=== PATIENT | female | born 1935 | race Caucasian/White ===

== ENCOUNTER 2019-06-07 15:24 | Observation (INO) | payer MEDICARE ==
[2019-06-07] MEDS ORDERED: NALOXONE 0.4 MG/ML 1 ML VIAL IV PRN (20:42)
[2019-06-07] MEDS ORDERED: NITROGLYCERIN SL TABS 0.4 MG TAB SUBLINGUAL PRN (20:44)
[2019-06-07] MEDS ORDERED: hydrALAZINE HCL 20 MG/ML 1 ML VIAL IVP PRN (21:00)
[2019-06-07] MEDS ORDERED: ALPRAZolam 0.25 MG TAB PO PRN (21:00)
[2019-06-07] MEDS ORDERED: cloNIDine HCL 0.1 MG TAB PO PRN (21:00)
[2019-06-07] MEDS: MAGNESIUM OXIDE 400 MG TAB PO SCH (21:12)
[2019-06-07] MEDS: amLODIPine 5 MG TAB PO SCH (21:12)
[2019-06-07] MEDS: MIRTAZAPINE 15 MG TAB PO SCH (21:12)
[2019-06-07] MEDS: DULoxetine HCL 60 MG CAPSULE.DR PO SCH (21:12)
[2019-06-07] MEDS: SODIUM CHLORIDE 0.9% 1,000 ML IV SCH (21:13)
[2019-06-07] MEDS: PANTOPRAZOLE 40 MG/10 ML VIAL IVP SCH (21:16)
[2019-06-07 21:32] LABS: Albumin 3.9 g/dL (3.5-5.0); Calcium 9.4 mg/dL (8.4-10.2); Potassium 4.2 mmol/L (3.5-5.1); Total Bilirubin 0.3 mg/dL (0.2-1.3); Total Protein 6.6 g/dL (6.3-8.2)
--- NOTE | 2019-06-07 21:38 | XR ---
EXAMINATION TYPE: XR chest 1V portable DATE OF EXAM: 06/07/2019 COMPARISON: NONE HISTORY: Short of breath TECHNIQUE: Single frontal view of the chest is obtained. FINDINGS: There is coarsening of the lung markings. There are sternal wires. Costophrenic angles are clear. There is mild linear density left lung base. Thoracic aorta is atheromatous. IMPRESSION: Subsegmental atelectasis. Mild pulmonary interstitial edema. This is consistent with min imal heart failure.
[2019-06-07 21:50] LABS: Basophils # (A) 0.1 k/uL (0-0.2); Basophils % (A) 1 %; Eosinophils # (A) 0.4 k/uL (0-0.7); Eosinophils % (A) 8 %; HGB 12.7 gm/dL (11.4-16.0); Lymphocytes # (A) 1.6 k/uL (1.0-4.8); Lymphocytes % (A) 35 %; MCH 30.4 pg (25.0-35.0); MCHC 31.7 g/dL (31.0-37.0); Mean Platelet Volume 8.5; Monocytes # (A) 0.3 k/uL (0-1.0); Monocytes % (A) 6 %; Neutrophils # (A) 2.1 k/uL (1.3-7.7); Neutrophils % (A) 46 %; Platelet Count 177 k/uL (150-450); RBC 4.17 m/uL (3.80-5.40); RDW 14.7 % (11.5-15.5); WBC 4.5 k/uL (3.8-10.6)
[2019-06-07 21:51] LABS: Appearance,Urine Clear (Clear); Bilirubin,Urine Negative (Negative); Blood,Urine Negative (Negative); Color,Urine Light Yellow; Glucose,Urine (UA) Negative (Negative); Ketones,Urine Negative (Negative); Leukocyte Esterase,Urine Negative (Negative); Nitrite,Urine Negative (Negative); Protein,Urine Negative (Negative); Specific Gravity,Urine 1.011 (1.001-1.035); Urobilinogen,Urine <2.0 mg/dL (<2.0)
[2019-06-07] MEDS: TROSPIUM CHLORIDE 20 MG TABLET PO SCH (21:58)
[2019-06-07] MEDS: TIMOLOL 0.5% OPHTH DROPS 5 ML BTL BOTH EYES SCH (22:01)
--- NOTE | 2019-06-07 23:31 | HP ---
HISTORY AND PHYSICAL DATE OF SERVICE: 06/07/2019 CHIEF COMPLAINT: Diarrhea and as well as melenic stools. HISTORY OF PRESENT ILLNESS: This 83-year-old woman with a past medical history of multiple medical problems including hyperlipidemia, history of restless legs syndrome, history of hypertension, history of GERD, history of kidney disease, tonsillectomy, appendectomy, being followed by Dr[facility] in the [facility] setting, was not feeling well for the last 3 days. The patient had multiple episodes of diarrheal stools which was melenic and also some blood was also noted. The patient went to [facility] and hemoglobin was found to be 13. A CT scan of the abdomen was done in [facility] which showed focal areas of mucosal thickening in the hepatic flexure, could be artifact and a hyperdense renal cyst was also noted and the patient was transferred to [facility] as a direct admission, admitted for further evaluation and treatment. There is no history of fever, rigors or chills. No history of headache, loss of consciousness or seizures at this time. PAST MEDICAL HISTORY: Of hypertension, hyperlipidemia, restless legs syndrome, history of gastroesophageal reflux disease. MEDICATIONS: Home medications are reviewed and include: 1. Norvasc 5 mg p.o. daily. 2. Timolol 1 drop both eyes daily. 3. VESIcare 5 mg q.h.s. 4. Pravachol 40 mg q.h.s. 5. Omeprazole 20 mg. 6. Nitrostat 0.4 sublingual p.r.n. 7. Singulair 10 mg p.o. daily. 8. Remeron 50 mg q.h.s. 9. Magnesium oxide 400 mg p.o. t.i.d. 10.Krill oil 500 mg p.o. daily. 11.Vitamin D2 50,000 p.o. Sunday. 12.Diclofenac 1 tablet p.o. daily. 13.Cymbalta 60 mg p.o. daily. 14.Plavix 75 mg p.o. daily. 15.Biotin 5 mg p.o. daily. ALLERGIES: NORCO, DILTIAZEM,ERYTHROMYCIN TABLETS, PREMARIN, NORCO, PENICILLIN, PREDNISONE, BACTRIM. VERAPAMIL. FAMILY HISTORY: No history of heart disease or strokes in the family. SOCIAL HISTORY: No history of current smoking or alcohol. REVIEW OF SYSTEMS: ENT: Diminished vision. Diminished hearing. CARDIOVASCULAR: No angina or palpitations. RESPIRATION: No cough or hemoptysis. GI mentioned earlier. no dysuria. NERVOUS SYSTEM: No numbness or weakness. ALLERGY/IMMUNOLOGY: No asthma or hayfever. MUSCULOSKELETAL as mentioned earlier. HEMATOLOGY/ONCOLOGY: No history of anemia. ENDOCRINE: No history of diabetes or hypothyroidism. CONSTITUTIONAL: As mentioned earlier. DERMATOLOGY: Negative. RHEUMATOLOGY: Negative. PSYCHIATRIC: As mentioned earlier. PHYSICAL EXAMINATION: Alert and oriented times three. Pulse is 54. Blood pressure 208/66, respiration 12, temperature 98 degrees, pulse ox 98% on room air. HEENT: Conjunctivae normal. Oral mucosa moist. NECK is no jugular venous distention. No carotid bruit. No lymph node enlargement. CARDIOVASCULAR: S1, S2 muffled. Ejection systolic murmur. No S3, no S4. RESPIRATORY: Breath sounds diminished in the bases. No rhonchi. No crackles. ABDOMEN: Soft. Mildly obese. Otherwise nontender. No guarding. No rigidity. No mass palpable. LEGS: No edema. No swelling. NERVOUS SYSTEM: Higher functions as mentioned earlier. Moves all 4 limbs. No focal motor or sensory deficit. LYMPHATICS: No lymph nodes palpable in the neck, axillae or groin. SKIN: No ulcer, rash or bleeding. JOINTS: No active deforming arthropathy. NERVOUS SYSTEM: Moves all 4 limbs. No focal deficits. LABS: At this time, hemoglobin 13, previous labs are noted. ASSESSMENT: 1. Possible upper gastrointestinal bleeding with diarrhea, rule out colitis. 2. Focal area of abnormality in the hepatic flexure area in the CT scan for further evaluation. 3. Hypertension. 4. Hyperlipidemia. 5. Restless legs syndrome. 6. History of coronary artery disease. 7. History of gastroesophageal reflux disease. 8. History of chronic kidney disease. 9. History of cholecystectomy. 10.History of appendectomy. 11.History of degenerative joint disease. RECOMMENDATIONS AND DISCUSSION: This 83-year-old woman who presented with multiple complex medical issues, at this time, I recommend to continue current medications, continue symptomatic treatment. Keep the patient on clear liquids. Gastroenterology evaluation. Otherwise, I would also recommend repeat labs in the morning and hold Plavix. Overall prognosis guarded because of multiple complex medical issues. The patient will require endoscopies. The possibility of upper gastrointestinal bleeding is also to be considered such as peptic ulcer disease. The CT scan abnormality is a concern as well. We will continue to monitor. Further recommendations to follow. Copy of dictation being forwarded to Dr. Angel, who is the primary physician. Discussed with the patient who understands and agrees. Discussed with staff. MMETTAL / IJN: [id number] /
[2019-06-08 07:54] LABS: Basophils # (A) 0.1 k/uL (0-0.2); Basophils % (A) 1 %; Eosinophils # (A) 0.3 k/uL (0-0.7); Eosinophils % (A) 7 %; HCT 38.6 % (34.0-46.0); HGB 12.6 gm/dL (11.4-16.0); Lymphocytes # (A) 1.3 k/uL (1.0-4.8); Lymphocytes % (A) 27 %; MCH 30.7 pg (25.0-35.0); MCHC 32.6 g/dL (31.0-37.0); Mean Platelet Volume 8.3; Monocytes # (A) 0.3 k/uL (0-1.0); Monocytes % (A) 5 %; Neutrophils # (A) 2.6 k/uL (1.3-7.7); Neutrophils % (A) 56 %; Platelet Count 171 k/uL (150-450); RBC 4.11 m/uL (3.80-5.40); RDW 13.7 % (11.5-15.5); WBC 4.7 k/uL (3.8-10.6)
[2019-06-08 08:09] LABS: Calcium 9.6 mg/dL (8.4-10.2); Potassium 5.1 mmol/L (3.5-5.1)
[2019-06-08] MEDS: MONTELUKAST 10 MG TAB PO SCH (09:14)
[2019-06-08] MEDS: amLODIPine 5 MG TAB PO SCH (09:14)
[2019-06-08] MEDS: MAGNESIUM OXIDE 400 MG TAB PO SCH ×3 (09:14→20:25)
[2019-06-08] MEDS: DULoxetine HCL 60 MG CAPSULE.DR PO SCH (09:14)
[2019-06-08] MEDS: TIMOLOL 0.5% OPHTH DROPS 5 ML BTL BOTH EYES SCH (09:14)
[2019-06-08] MEDS: PANTOPRAZOLE 40 MG/10 ML VIAL IVP SCH ×2 (09:15→20:26)
--- NOTE | 2019-06-08 10:54 | P.GSCN ---
History of Present Illness Consult date: 06/08/19 Reason for Consult: GI bleed History of present illness: Patient came to the hospital complaining of black colored stools. Patient takes blood thinners while at home. No history of similar events. Denies abdominal pain. Never has had an upper or lower endoscopy in the past. Plavix was held after admission. Denies constipation. We were consulted for endoscopic evaluation. Review of Systems The patient denies any acute changes in vision or hearing, no dysphagia or odynophagia, no chest pain or shortness of breath, no dysuria or hematuria, no headache, no runny nose, no unexplained weight loss Past Medical History Past Medical History: Hyperlipidemia, Hypertension, Rheumatoid Arthritis (RA) History of Any Multi-Drug Resistant Organisms: None Reported Past Surgical History: Back Surgery, Coronary Bypass/CABG, Hysterectomy, Joint Replacement, Orthopedic Surgery, Tonsillectomy Additional Past Surgical History / Comment(s): CABG x3 Past Anesthesia/Blood Transfusion Reactions: No Reported Reaction Past Psychological History: No Psychological Hx Reported Smoking Status: Never smoker - Past Family History Father Family Medical History: Unable to Obtain Mother Family Medical History: Unable to Obtain Medications and Allergies Home Medications Medication Instructions Recorded Confirmed Type Biotin 5 mg PO DAILY 06/07/19 06/07/19 History Clopidogrel [Plavix] 75 mg PO DAILY 06/07/19 06/07/19 History DULoxetine HCL [Cymbalta] 60 mg PO DAILY 06/07/19 06/07/19 History Diclofenac Sodium/Misoprostol 1 tab PO DAILY 06/07/19 06/07/19 History [Diclofenac-Misoprost 75-200 Tb] Ergocalciferol (Vitamin D2) 50,000 unit PO SA 06/07/19 06/07/19 History [Vitamin D2] Krill Oil 500 mg PO DAILY 06/07/19 06/07/19 History Magnesium Oxide 400 mg PO TID 06/07/19 06/07/19 History Mirtazapine [Remeron] 15 mg PO HS 06/07/19 06/07/19 History Montelukast [Singulair] 10 mg PO DAILY 06/07/19 06/07/19 History Nitroglycerin Sl Tabs [Nitrostat] 0.4 mg SUBLINGUAL Q5M PRN 06/07/19 06/07/19 History Omeprazole 20 mg PO DAILY 06/07/19 06/07/19 History Pravastatin Sodium [Pravachol] 40 mg PO HS 06/07/19 06/07/19 History Solifenacin Succinate [Vesicare] 5 mg PO HS 06/07/19 06/07/19 History Timolol [Betimol 0.5% Ophth Soln] 1 drop BOTH EYES DAILY 06/07/19 06/07/19 History amLODIPine [Norvasc] 5 mg PO DAILY 06/07/19 06/07/19 History Allergies Allergy/AdvReac Type Severity Reaction Status Date / Time acetaminophen [From [place]] Allergy Unknown Verified 06/07/19 19:48 diltiazem Allergy Unknown Verified 06/07/19 19:48 erythromycin base Allergy Unknown Verified 06/07/19 19:48 [From Ethan-Tab] estrogens, conjugated Allergy Unknown Verified 06/07/19 19:48 [From Premarin] hydrocodone [From [place]] Allergy Unknown Verified 06/07/19 19:48 Penicillins Allergy Unknown Verified 06/07/19 19:48 prednisone Allergy Unknown Verified 06/07/19 19:48 sulfamethoxazole Allergy Unknown Verified 06/07/19 19:48 [From Bactrim] trimethoprim [From Bactrim] Allergy Unknown Verified 06/07/19 19:48 verapamil Allergy Unknown Verified 06/07/19 19:48 Surgical - Exam Vital Signs Temp Pulse Resp BP Pulse Ox 98 F 54 L 12 208/66 99 06/07/19 17:35 06/07/19 17:35 06/07/19 17:35 06/07/19 17:35 06/07/19 17:35 Physical exam: General: Well-developed, well-nourished HEENT: Normocephalic, sclerae nonicteric Abdomen: Nontender, nondistended Extremities: No edema Neuro: Alert and oriented Results - Labs 06/08/19 07:02 06/08/19 07:02 Abnormal Lab Results - Last 24 Hours (Table) 06/07/19 06/08/19 Range/Units 20:59 07:02 Chloride 108 H 109 H (98-107) mmol/L Carbon Dioxide 21 L (22-30) mmol/L BUN 40 H 34 H (7-17) mg/dL Creatinine 1.35 H 1.23 H (0.52-1.04) mg/dL Diabetes panel 06/07/19 06/08/19 Range/Units 20:59 07:02 Sodium 140 140 (137-145) mmol/L Potassium 4.2 5.1 (3.5-5.1) mmol/L Chloride 108 H 109 H (98-107) mmol/L Carbon Dioxide 21 L 22 (22-30) mmol/L BUN 40 H 34 H (7-17) mg/dL Creatinine 1.35 H 1.23 H (0.52-1.04) mg/dL Glucose 89 93 (74-99) mg/dL Calcium 9.4 9.6 (8.4-10.2) mg/dL AST 14 (14-36) U/L ALT 15 (9-52) U/L Alkaline Phosphatase 86 (38-126) U/L Total Protein 6.6 (6.3-8.2) g/dL Albumin 3.9 (3.5-5.0) g/dL Calcium panel 06/07/19 06/08/19 Range/Units 20:59 07:02 Calcium 9.4 9.6 (8.4-10.2) mg/dL Albumin 3.9 (3.5-5.0) g/dL Pituitary panel 06/07/19 06/08/19 Range/Units 20:59 07:02 Sodium 140 140 (137-145) mmol/L Potassium 4.2 5.1 (3.5-5.1) mmol/L Chloride 108 H 109 H (98-107) mmol/L Carbon Dioxide 21 L 22 (22-30) mmol/L BUN 40 H 34 H (7-17) mg/dL Creatinine 1.35 H 1.23 H (0.52-1.04) mg/dL Glucose 89 93 (74-99) mg/dL Calcium 9.4 9.6 (8.4-10.2) mg/dL Adrenal panel 06/07/19 06/08/19 Range/Units 20:59 07:02 Sodium 140 140 (137-145) mmol/L Potassium 4.2 5.1 (3.5-5.1) mmol/L Chloride 108 H 109 H (98-107) mmol/L Carbon Dioxide 21 L 22 (22-30) mmol/L BUN 40 H 34 H (7-17) mg/dL Creatinine 1.35 H 1.23 H (0.52-1.04) mg/dL Glucose 89 93 (74-99) mg/dL Calcium 9.4 9.6 (8.4-10.2) mg/dL Total Bilirubin 0.3 (0.2-1.3) mg/dL AST 14 (14-36) U/L ALT 15 (9-52) U/L Alkaline Phosphatase 86 (38-126) U/L Total Protein 6.6 (6.3-8.2) g/dL Albumin 3.9 (3.5-5.0) g/dL Assessment and Plan (1) GI bleed Narrative/Plan: 83-year-old female with new onset melanotic stools. We'll proceed with upper and lower endoscopy tomorrow. Continue to hold Plavix. Current Visit: Yes Status: Acute Code(s): K92.2 - GASTROINTESTINAL HEMORRHAGE, UNSPECIFIED SNOMED Code(s): 25679180
[2019-06-08] MEDS: SODIUM CHLORIDE 0.9% 1,000 ML IV SCH (12:14)
[2019-06-08] MEDS ORDERED: PEG 3350-NA SULF,BICARB,CL/KCL 4,000 ML BOTTLE PO ONE (14:21)
[2019-06-08] MEDS: cloNIDine HCL 0.1 MG TAB PO SCH ×2 (18:08→20:26)
--- NOTE | 2019-06-08 19:21 | PN ---
PROGRESS NOTE DATE OF SERVICE: 06/08/2019 This 83 -year-old woman with a past medical history of multiple medical problems was admitted with GI bleed. The patient still has some minimal amount of gastrointestinal bleed at this time. Dr. Coburn is following the patient closely. Hemoglobin is 12.6 today. Creatinine is elevated at 1.23. PAST MEDICAL HISTORY: Reviewed. REVIEW OF SYSTEMS: CARDIOVASCULAR SYSTEM: No angina or palpitations. RESPIRATION: As mentioned earlier. GI: As mentioned earlier. : No dysuria. CENTRAL NERVOUS SYSTEM: No numbness or weakness. CURRENT MEDICATIONS: Reviewed and include: 1. Xanax 0.5 t.i.d. 2. Norvasc 5 mg daily. 3. Catapres 0.1 q.4 p.r.n. 4. Cymbalta 60 mg daily. 5. Apresoline 10 mg q.4 p.r.n. 6. Magnesium oxide 400 mg t.i.d. 7. Remeron 50 mg q.h.s. 8. Singulair 10 mg p.o. daily. 9. Narcan 0.2 q.2h p.r.n. 10.Nitrostat 0.4 sublingual p.r.n. 11.Protonix 40 mg IV b.i.d. 12.Timoptic 1 drop both eyes. 13.Sanctura 20 mg p.o. q.h.s. PHYSICAL EXAM: Patient is alert, oriented x3. The pulse is 97, blood pressure 215/83, respiration 12, temperature 97.6, pulse ox 98% on room air. HEENT: Conjunctivae normal. Oral mucosa moist. NECK is no jugular venous distention. No carotid bruit. No lymph node enlargement. CARDIOVASCULAR: S1, S2 muffled. No S3, no S4. RESPIRATORY: Breath sounds diminished in the bases. No rhonchi. No crackles. ABDOMEN: Soft, nontender. No mass palpable. No hepatosplenomegaly. No ascites. LEGS: No edema. No swelling. NERVOUS SYSTEM: Higher functions as mentioned earlier. Moves all four limbs. No focal motor or sensory deficits. LYMPHATICS: No lymph nodes palpable in the neck, axillae or groin. SKIN: No ulcers, rashes or bleeding. JOINTS: No active deforming arthropathy. LABS: At this time shows WBC 4.7, hemoglobin ntd, potassium 5.2, creatinine is to 1.23. ASSESSMENT: 1. Acute upper gastrointestinal bleeding, possibly with acute blood loss anemia. Rule out colitis. 2. Focal area of abnormality in hepatic flexure with area in the CT scan done elsewhere for further evaluation. 3. Hypertensive urgency and accelerated hypertension. 4. Hyperlipidemia. 5. Restless legs syndrome history. 6. History of coronary artery disease. 7. History of gastroesophageal reflux disease. 8. History of chronic kidney disease. 9. History of cholecystectomy. 10.Appendectomy. 11.History of degenerative joint disease. RECOMMENDATIONS AND DISCUSSION: Recommend to continue current medications, management and symptomatic treatment. Otherwise, at this time, I recommend evaluation with surgery and Gastroenterology. Otherwise, add clonidine to the current regimen. P.r.n. medications hydralazine also can be used. Further recommendations to follow. Prognosis guarded because of multiple complex medical issues. Repeat labs will be ordered for tomorrow morning. DVT prophylaxis. MMODL / IJN: [id number] / MTDDevin
[2019-06-08] MEDS: TROSPIUM CHLORIDE 20 MG TABLET PO SCH (20:25)
[2019-06-08] MEDS: MIRTAZAPINE 15 MG TAB PO SCH ×2 (20:26→20:34)
[2019-06-09] MEDS: SODIUM CHLORIDE 0.9% 1,000 ML IV SCH ×2 (00:35→13:52)
[2019-06-09] MEDS: MAGNESIUM OXIDE 400 MG TAB PO SCH ×2 (07:13→15:59)
[2019-06-09] MEDS: MONTELUKAST 10 MG TAB PO SCH (07:13)
[2019-06-09] MEDS: PANTOPRAZOLE 40 MG/10 ML VIAL IVP SCH (07:27)
[2019-06-09] MEDS: amLODIPine 5 MG TAB PO SCH (07:27)
[2019-06-09] MEDS: DULoxetine HCL 60 MG CAPSULE.DR PO SCH (07:27)
[2019-06-09] MEDS: cloNIDine HCL 0.1 MG TAB PO SCH ×2 (07:27→15:58)
[2019-06-09] MEDS: TIMOLOL 0.5% OPHTH DROPS 5 ML BTL BOTH EYES SCH (07:28)
[2019-06-09] MEDS ORDERED: LIDOCAINE 1% INJ 10MG/ML (20 ML MDV) ONE (09:50)
[2019-06-09] MEDS ORDERED: ePHEDrine SULFATE/0.9% NACL/PF 50 MG/5 ML SYRINGE IV ONE (09:50)
[2019-06-09] MEDS ORDERED: IV FLUID CONTINUATION 1,000 ML IV ONE (09:50)
[2019-06-09] MEDS ORDERED: PROPOFOL 10 MG/ML 20 ML VIAL IV ONE (09:50)
[2019-06-09] MEDS ORDERED: GLYCOPYRROLATE 0.2 MG/ML 2 ML VIAL ONE (09:50)
[2019-06-09 10:04] LABS: Basophils # (A) 0.1 k/uL (0-0.2); Basophils % (A) 2 %; Eosinophils # (A) 0.4 k/uL (0-0.7); Eosinophils % (A) 9 %; HCT 36.7 % (34.0-46.0); HGB 12.2 gm/dL (11.4-16.0); Lymphocytes # (A) 1.4 k/uL (1.0-4.8); Lymphocytes % (A) 31 %; MCH 30.7 pg (25.0-35.0); MCHC 33.1 g/dL (31.0-37.0); MCV 92.7 fL (80.0-100.0); Mean Platelet Volume 8.6; Monocytes # (A) 0.3 k/uL (0-1.0); Monocytes % (A) 6 %; Neutrophils # (A) 2.2 k/uL (1.3-7.7); Neutrophils % (A) 49 %; Platelet Count 188 k/uL (150-450); RBC 3.96 m/uL (3.80-5.40); RDW 14.2 % (11.5-15.5); WBC 4.5 k/uL (3.8-10.6)
[2019-06-09] MEDS ORDERED: LACTATED RINGERS 1,000 ML IV ONE (10:11)
--- NOTE | 2019-06-09 10:22 | P.PCN ---
Date of Procedure: 06/09/19 Procedure(s) Performed: PREOPERATIVE DIAGNOSIS: GI bleeding POSTOPERATIVE DIAGNOSIS: Normal EGD, normal colonoscopy PROCEDURE: 1. EGD with biopsy 2. Colonoscopy ANESTHESIA: MAC SURGEON: Chas Coburn M.D. SPECIMENS: Antrum ENDOSCOPIC PROCEDURE: The patient was on the endoscopy table in the left decubit us position. The Olympus gastroscope was inserted into the oropharynx and passed under direct visualization to the region of the third portion of the duodenum. From that point the scope was slowly withdrawn inspecting all surfaces carefully. There were no neoplastic inflammatory or polypoid lesions throughout the duodenum. The pylorus was widely patent. The stomach was carefully inspected. There was no abnormalities identified. A biopsy of the antrum took place to rule out H. pylori. Retroflexion revealed a normal hiatus. The esophagus was then carefully examined. There were no neoplastic inflammatory or polypoid lesions throughout the visualized esophagus. The patient was kept on the endoscopy table in the left decubitus position. The Olympus colonoscope was inserted into the anus and passed under direct visualization to the base of the cecum. The appendiceal orifice was visualized. From that point the scope was slowly withdrawn inspecting all surfaces carefully. There were no neoplastic inflammatory or polypoid lesions throughout the cecum, ascending, transverse, descending, sigmoid and rectum. There was no visible diverticulosis noted. There was no blood in the colon. Digital rectal examination was normal. The patient was taken to the recovery room in stable condition per anesthesia guidelines. RECOMMENDATIONS: Resume diet. Resume anticoagulation. If bleeding recurs recommend small bowel workup.
[2019-06-09 10:37] LABS: Calcium 8.9 mg/dL (8.4-10.2); Potassium 4.2 mmol/L (3.5-5.1)
[2019-06-09 10:40] VITALS: RESP 16
[2019-06-09 14:51] VITALS: BP 139/64; PULSE 74; TEMP 98.1
--- NOTE | 2019-06-09 15:26 | CDI ---
Documentation Clarification Form Date: 06/09/2019 2:42:00 PM From: Lana Tidwell RN, CCDS Admit Date: 06/07/2019 5:47:00 PM Patient Name: Lydia Sanchez Visit Number: [id number] Discharge Date: ATTENTION: The Clinical Documentation Specialists (CDI) and [facility] Coding Staff appreciate your assistance in clarifying documentation. Please respond to the clarification below the line at the bottom and electronically sign. The CDI & [facility] Coding staff will review the response and follow-up if needed. Please note: Queries are made part of the Legal Health Record. If you have any questions, please contact the author of this message via ITS. Dr. Nilam Zhong Chronic kidney was documented in the H&P and subsequent documentation and additional clarification is needed. History/Risk Factors: Hypertension, Kidney disease, GERD, Hyperlipidemia Clinical Indicators: 83-year-old female with history of kidney disease present with complaints of not feeling well for last 3 days. She has had multiple episodes of diarrhea with melanotic stools. BUN 40 CR 1.35 GFR 36 BUN 34 CR, 1.23 GFR 41 Current BUN 20 CR 1.06 GFR: 48 Treatment: Monitor BUN, CR IV Fluids 75 mls/hr (DC) In order to capture the severity of condition, please clarify if the condition signifies: Acute renal failure Please specifies etiology (if known): Cortical Necrosis Medullary Necrosis Tubular Necrosis Acute kidney injury Acute on chronic renal failure CKD Stage 1 GFR >90 CKD Stage 2 GFR 60-89 CKD Stage 3 GFR 30-59 CKD Stage 4 GFR 15-29 CKD Stage 5 GFR <15 Chronic renal failure/Chronic Kidney disease (CKD) please stage (if known): CKD Stage 1 GFR >90 CKD Stage 2 GFR 60-89 CKD Stage 3 GFR 30-59 CKD Stage 4 GFR 15-29 CKD Stage 5 GFR <15 Other, please specify Unable to determine (Last Revision: January 2018) CKD Stage 3 GFR 30-59 MTDD
--- NOTE | 2019-06-09 17:37 | PN ---
PROGRESS NOTE DATE OF SERVICE: 06/09/2019 This 84-year-old woman admitted with GI bleed underwent EGD, biopsy and colonoscopy. Colonoscopy showed no inflammatory neoplastic process. Diet was recommended by Surgery. No chest pain. No palpitations. No fever. On exam, alert and oriented x3. Pulse 74, blood pressure 139/64, respirations 16, temperature 98.1, pulse ox 93% on room air. HEENT: Conjunctivae normal. NECK: No jugular venous distention. CARDIOVASCULAR SYSTEM: S1, S2 muffled. RESPIRATORY SYSTEM: Breath sounds diminished at the bases. No rhonchi. No crackles. ABDOMEN: Soft, non-tender. No mass palpable. LEGS: No edema. No swelling. NERVOUS SYSTEM: No focal deficit. LABS: CBC within normal limits. Creatinine is 1.06. ASSESSMENT: 1. Possible gastrointestinal bleed with acute blood loss anemia with negative EGD and colonoscopy. 2. Focal area of abnormal hepatic flexure on the CT scan; however, colonoscopy normal. 3. Hypertensive urgency. 4. Accelerated hypertension. 5. Hyperlipidemia. 6. Restless legs syndrome history. 7. History of coronary artery disease. 8. History of gastroesophageal reflux disease. 9. History of chronic kidney disease. 10.History of cholecystectomy. 11.History of appendectomy. 12.History of degenerative joint disease. RECOMMENDATIONS AND DISCUSSION: I recommend to continue current medications, continue with the monitoring, symptomatic treatment. Advance diet. Repeat hemoglobin. Closely follow with multiple consultants. Guarded prognosis. Further recommendations to follow. Increased ambulation. MMODL / IJN: [id number] /
--- NOTE | 2019-06-10 00:02 | DS ---
DISCHARGE SUMMARY DATE OF SERVICE: 06/09/2019. FINAL DIAGNOSES: 1. Acute upper gastrointestinal bleeding with negative EGD and colonoscopy, of undetermined etiology. 2. Focal area of abnormality in the hepatic flexure, but the colonoscopy showed no evidence. 3. Hypertensive urgency, accelerated hypertension. 4. Hyperlipidemia. 5. Restless legs syndrome history. 6. History of coronary artery disease. 7. History of gastroesophageal reflux disease. 8. History of chronic kidney disease. 9. Cholecystectomy. 10.Appendectomy. 11.History of degenerative joint disease. DISCHARGE DISPOSITION: The patient will be discharged in stable condition with guarded prognosis. Discharge cleared by Dr. Soliz from Gastroenterology. HISTORY OF PRESENT ILLNESS: This 83-year-old woman with a past medical history of multiple medical problems was admitted with GI bleed. Colonoscopy and EGD done by Dr. Coburn did not show acute abnormality. Hemoglobin is stable. Dr. Soliz recommended outpatient followup. On exam, vitals are stable. CARDIOVASCULAR SYSTEM: S1, S2 muffled. ABDOMEN: Soft. NERVOUS SYSTEM: No focal deficit. DISCHARGE ADVICE AND MEDICATIONS: 1. Discharge diet is cardiac. 2. Activity limited until followup. 3. Follow up with primary physician in 2-3 days with CBC, BMP. 4. Clonidine 0.1 p.o. b.i.d. 5. Protonix 40 mg p.o. daily. 6. Timolol 1 drop both eyes daily. 7. Biotin 5 mg p.o. daily. 8. Cymbalta 60 mg p.o. daily. 9. Krill oil 500 mg daily. 10.Magnesium oxide 400 mg t.i.d. 11.Nitroglycerin p.r.n. 12.Norvasc 5 mg p.o. daily. 13.Omeprazole 20 mg p.o. daily. 14.Pravachol 40 mg at bedtime. 15.Remeron 15 mg at bedtime. 16.Singulair 10 mg p.o. daily. 17.Vesicare 5 mg at bedtime. 18.Vitamin D2 50,000 p.o. Sunday. 19.Diclofenac. 20.Plavix starting in one week if there is no bleeding. 21.Follow up with GI as well as Surgery as recommended. Once again, the patient will be discharged in stable condition with guarded prognosis. Family is very keen on taking the patient home at this time. MMODL / IJN: [id number] /
== END 2019-06-09 18:41 ==
LOC: INTOOBSV 17:47 → 4SSUR 17:47
PROVIDERS: ADMIT Internal Medicine; ATTEND Internal Medicine
DX: K92.1 Melena (principal); I16.0 Hypertensive urgency; R93.3 Abnormal findings on diagnostic imaging of other parts of digestive tract; I12.9 Hypertensive chronic kidney disease with stage 1 through stage 4 chronic kidney disease, or unspecified chronic kidney disease; N18.9 Chronic kidney disease, unspecified; E78.5 Hyperlipidemia, unspecified; G25.81 Restless legs syndrome; K21.9 Gastro-esophageal reflux disease without esophagitis; I25.10 Atherosclerotic heart disease of native coronary artery without angina pectoris; M06.9 Rheumatoid arthritis, unspecified; M19.90 Unspecified osteoarthritis, unspecified site; N28.1 Cyst of kidney, acquired; Z79.02 Long term (current) use of antithrombotics/antiplatelets; Z79.899 Other long term (current) drug therapy; Z88.1 Allergy status to other antibiotic agents; Z88.5 Allergy status to narcotic agent; Z88.0 Allergy status to penicillin; Z88.2 Allergy status to sulfonamides; Z88.6 Allergy status to analgesic agent; Z88.8 Allergy status to other drugs, medicaments and biological substances; Z90.49 Acquired absence of other specified parts of digestive tract; Z95.1 Presence of aortocoronary bypass graft; Z90.710 Acquired absence of both cervix and uterus; Z96.649 Presence of unspecified artificial hip joint; Z96.659 Presence of unspecified artificial knee joint
CPT/HCPCS: 96376 ×2; 96361 ×2; 96374; 96375; 94760; 93005; 88305; 80053; 80048 ×2; 85025 ×3; 81003; 71045; 45378; 43239; G0379; G0378 ×4; J0360; J2001; J2704; C9113 ×3